=== PATIENT | male | born 1985 | race Two or more races ===

== ENCOUNTER 2023-03-06 09:46 | Emergency (ER) | payer OTHER, SELFPAY ==
[2023-03-06 09:52] VITALS: BP 154/97; PULSE 88; RESP 16; TEMP 36.4; O2SAT 99; BMI 27.8
--- NOTE | 2023-03-06 10:01 | PC.NURSE ---
pt has had dental pain for months to rt upper posterior jaw. pt had been s een here previously for same thing and had appt with dentist set up but was incarcerated and released yesterday. pt is holding rt side of face. report dental analgesia given previously worked well for him. dentition is poor t/o mouth.
--- NOTE | 2023-03-06 10:07 | ED_ITS ---
HPI - General Adult General Chief complaint: Dental/Oral Stated complaint: DENTAL PAIN Time Seen by Provider: 03/06/23 09:58 Source: patient Mode of arrival: walk-in Limitations: no limitations History of Present Illness HPI narrative: Patient is a 37-year-old male, extremely pleasant, coming into the Emergency Room today for acute on chronic dental pain. Patient has multiple areas of dental caries, patient's having pain with tooth #31 and 32. Patient has no signs temperature periapical abscess, patient has no fall taste or pus coming from the tooth. Patient did have a dental appointment this past month, but he went to [facility] care. Patient just got a generally yesterday, and patient is working with his girlfriend to reestablish another dental appointment. He states that [facility] will see him for dental care, but he has to be there the of the month To reestablish care. Patient has no fever, chills. No dull pain, nausea, vomiting, or any other acute complaints. Related Data Allergies Allergy/AdvReac Type Severity Reaction Status Date / Time Penicillins Allergy Severe Anaphylaxis Verified 03/06/23 09:52 Review of Systems ROS Narrative All systems are negative except as noted/marked. All systems reviewed and otherwise negative. PFSH PFS Social History Smoking status: Current every day smoker Exam Narrative Exam Narrative: Nurses notes reviewed and patient is noted to be non-hypoxic. General: The patient is comfortable, alert and oriented x3, well appearing, non toxic in no apparent distress. Head: Atraumatic and normocephalic. Eyes: Normal conjunctiva ENT: The oropharynx is normal. No pharyngeal erythema, uvular edema, tonsillar exudates, asymmetry or trismus. Uvula is midline. Mouth is normal to inspection With the exception of a pain on percussion of the tooth #31/32 and evidence of Multiple dental caries. There is no evidence of facial asymmetry or abscess formation. Floor of the mouth is soft. No tenderness in the submental or submandibular space. No tongue elevation or deviation. The patient has no evidence of periapical abscess, gingivitis, ANUG or other acute pathology. Airway is patent. Neck: The neck demonstrates normal range of motion. No meningeals signs are present. No stridor. No masses or lymphandenopathy noted. Respiratory: No acute distress, lungs are clear to auscultation, no wheezing, rhonchi, or rales noted. No stridor or retractions are noted. Cardiovascular: Regular rate and rhythm Skin: The skin exam shows no evidence of rashes. Patient has multiple Tattoos, no signs of secondary infection Neuro: Alert and oriented x4, normal speech Lymphatic: No cervical lymphadenopathy Constitutional Vital Signs - 24 hr 03/06/23 09:52 Temperature 97.5 F L Pulse Rate [Monitor] 88 Respiratory Rate 16 Blood Pressure [Right Arm] 154/97 H Pulse Oximetry 99 Oxygen Delivery Method Room Air Course Vital Signs Vital signs: Vital Signs Temperature 97.5 F L 03/06/23 09:52 Pulse Rate 88 03/06/23 09:52 Respiratory Rate 16 03/06/23 09:52 Blood Pressure 154/97 H 03/06/23 09:52 Pulse Oximetry 99 03/06/23 09:52 Oxygen Delivery Method Room Air 03/06/23 09:52 Temperature 97.5 F L 03/06/23 09:52 Pulse Rate 88 03/06/23 09:52 Respiratory Rate 16 03/06/23 09:52 Blood Pressure 154/97 H 03/06/23 09:52 Pulse Oximetry 99 03/06/23 09:52 Oxygen Delivery Method Room Air 03/06/23 09:52 Medical Decision Making MDM Narrative Medical decision making narrative: . Patient is given dental analgesia which she actually requested, stating that helped significantly with his pain last time. No indication for antibiotics at this time. Patient blood pressure is elevated, he is aware of this. Patient will check blood pressure at grocery stores or drug stores and if it is consistently high, he'll follow [facility] with [facility] for his blood pressure readings as well. He has no headache, chest pain, shortness of breath, no syncopal episodes. Patient is very thankful for help. Patient was given dental clinic sheet as well. Discharge Plan Discharge Chief Complaint: Dental/Oral Clinical Impression: Dental caries, Toothache Patient Disposition: Home, Self-Care Time of Disposition Decision: 10:03 Instructions: Benzocaine (By mouth) (Anbesol, Anbesol Maximum Strength,..., Toothache (ED) Additional Instructions: Use [id number] Tylenol Motrin as needed for pain. Dental clinic sheet has been provided. Stand Alone Forms: Portal Instructions Referrals: Physician,Non-Staff, [Primary Care Provider] - 1 week
[2023-03-06] MEDS: BENZOCAINE 30 ML, lidocaine HCL 15 ML MM (10:14)
== END 2023-03-06 10:18 | disposition home or self-care (01) ==
PROVIDERS: Emergency Provider Emergency Medicine
DX: K02.9 Dental caries, unspecified (principal); K08.89 Other specified disorders of teeth and supporting structures; F17.210 Nicotine dependence, cigarettes, uncomplicated
CPT/HCPCS: 99283

== ENCOUNTER 2023-03-12 12:03 | Emergency (ER) | payer OTHER, SELFPAY ==
[2023-03-12 12:07] VITALS: BP 142/93; PULSE 68; RESP 18; TEMP 36.6; O2SAT 98; BMI 27.8
--- NOTE | 2023-03-12 12:15 | PC.NURSE ---
Pt was prescribed topical dental anesthesia 4 days ago and states this helped but he is out of it now.
--- NOTE | 2023-03-12 12:20 | ED.DENTAL1 ---
HPI - Dental/Oral General Chief complaint: Dental/Oral Stated complaint: TOOTHPAIN Time Seen by Provider: 03/12/23 12:15 Source: patient Mode of arrival: walk-in Limitations: no limitations History of Present Illness HPI Narrative: 37-year-old male presents to the emergency department for toothache. He has a dentist appointment in eight days. He's complaining of pain primarily to his left lower jaw posteriorly. She is requesting the liquid that you put on a cotton ball to numb his gums. No fever or difficulty breathing or swallowing. The pain is moderate and continuous. Related Data Previous Rx's Medication Instructions Recorded clindamycin HCl 300 mg capsule 300 mg PO Q6H 7 days #28 caps 03/12/23 Allergies Allergy/AdvReac Type Severity Reaction Status Date / Time Penicillins Allergy Severe Anaphylaxis Verified 03/06/23 09:52 Review of Systems ROS Narrative A ten point review of systems is negative except as noted above. PFSH PFSH Social History Smoking status: Current every day smoker Exam Narrative Exam Narrative: Nurses note and vital signs reviewed and patient is not hypoxic. General: The patient appears well and in no apparent distress. Patient is resting comfortably on cart. Skin: Warm, dry, no pallor noted. There is no rash noted. Head: Normocephalic, atraumatic Eye: Normal conjunctiva, no drainage Ears, Nose, Mouth, and Throat: oral mucosa is moist. Nares patent. Dental caries noted in left lower jaw posteriorly. No gingival swelling or erythema. No swelling to the floor of his mouth. No facial swelling or erythema. Cardiovascular: Regular Rate and Rhythm Respiratory: Patient is in no distress, no accessory muscle use, lungs are clear to auscultation, no wheezing, rales or rhonchi Back: non-tender GI: Soft and nontender Musculoskeletal: The patient has no evidence of calf tenderness, no pitting edema, symmetrical pulses noted bilaterally Neurological: A&O, normal speech Psychiatric: Cooperative Constitutional Vital Signs - 24 hr 03/12/23 12:07 Temperature 97.8 F Pulse Rate [Monitor] 68 Respiratory Rate 18 Blood Pressure [Right Arm] 142/93 H Pulse Oximetry 98 Oxygen Delivery Method Room Air Course Vital Signs Vital signs: Vital Signs Temperature 97.8 F 03/12/23 12:07 Pulse Rate 68 03/12/23 12:07 Respiratory Rate 18 03/12/23 12:07 Blood Pressure 142/93 H 03/12/23 12:07 Pulse Oximetry 98 03/12/23 12:07 Oxygen Delivery Method Room Air 03/12/23 12:07 Temperature 97.8 F 03/12/23 12:07 Pulse Rate 68 03/12/23 12:07 Respiratory Rate 18 03/12/23 12:07 Blood Pressure 142/93 H 03/12/23 12:07 Pulse Oximetry 98 03/12/23 12:07 Oxygen Delivery Method Room Air 03/12/23 12:07 MDM - Dental/Oral MDM Narrative Medical decision making narrative: . dental anesthesia and clindamycin prescription. He'll see his dentist in eight days. Treatment diagnosis and follow-up were discussed with the patient Differential Diagnosis Differential diagnosis: Likely dental caries, toothache and dental abscess Discharge Plan Discharge Chief Complaint: Dental/Oral Clinical Impression: Dental caries Patient Disposition: Home, Self-Care Time of Disposition Decision: 12:18 Mode of Transportation: Private Vehicle Prescriptions / Home Meds: New clindamycin HCl 300 mg capsule 300 mg PO Q6H 7 Days Qty: 28 0RF Instructions: Toothache (ED) Stand Alone Forms: Portal Instructions Referrals: Physician,Non-Staff, MD [Primary Care Provider] - 1 week
[2023-03-12] MEDS: BENZOCAINE 30 ML, lidocaine HCL 15 ML MM (12:34)
== END 2023-03-12 12:40 | disposition home or self-care (01) ==
LOC: ER 12:50
PROVIDERS: Emergency Provider Emergency Medicine
DX: K02.9 Dental caries, unspecified (principal); F17.210 Nicotine dependence, cigarettes, uncomplicated
CPT/HCPCS: 99283

== ENCOUNTER 2023-04-16 15:13 | Emergency (ER) | payer OTHER, SELFPAY ==
[2023-04-16 15:22] VITALS: BP 114/74; PULSE 65; RESP 18; TEMP 36.5; O2SAT 100
--- NOTE | 2023-04-16 15:48 | ED.DENTAL1 ---
HPI - Dental/Oral General Chief complaint: Dental/Oral Stated complaint: toothache Time Seen by Provider: 04/16/23 15:35 Source: patient Mode of arrival: walk-in Limitations: no limitations History of Present Illness HPI Narrative: patient is a 37-year-old male presents to the emergency department for acute on chronic toothache to the right mandible and right maxilla. He has been seen in this emergency department twice previously in the last six weeks for the same symptoms. He completed a course of clindamycin three weeks ago. He does not have an appointment with the dentist for another month, although documentation from his visit one month ago shows that he was supposed to have a visit with a dentist within the week from his last visit. He is regular smoker. He has had no fevers, swelling of the mouth or drainage from the teeth. Related Data Previous Rx's Medication Instructions Recorded ketorolac 10 mg tablet 10 mg PO TID PRN pain #10 tabs 04/16/23 Allergies Allergy/AdvReac Type Severity Reaction Status Date / Time Penicillins Allergy Severe Anaphylaxis Verified 03/06/23 09:52 Review of Systems ROS Constitutional Denies: fever or chills Ears, nose, mouth, and throat Denies: throat pain Cardiovascular Denies: chest pain Respiratory Denies: shortness of breath or cough Gastrointestinal Denies: nausea or vomiting Musculoskeletal Denies: back pain Integumentary/Breast Denies: rash Neurological Denies: headache Hematologic/Lymphatic Denies: easy bruising Allergic/Immunologic Denies: hives PFSH PFS Social History Smoking status: Current every day smoker Exam Narrative Exam Narrative: Gen.: Awake, alert, in no distress Head: Normocephalic, atraumatic ENT: Moist mucous membranes, diffuse dental caries noted with no drainage or visible abscess. No redness or swelling under the tongue. No mandibular or maxillary swelling. Respiratory: No respiratory distress Extremities: Moves extremities equally Psych: Normal mood and affect Neuro: No focal neuro deficit Skin: Warm, dry, intact Constitutional Vital Signs, click to edit/add: Last Vital Signs Temp 97.7 F 04/16/23 15:22 Pulse 65 04/16/23 15:22 Resp 18 04/16/23 15:22 BP 114/74 07/27/23 15:22 Pulse Ox 100 04/16/23 15:22 O2 Del Method Room Air 04/16/23 15:22 Course Vital Signs Vital signs: Vital Signs Temperature 97.7 F 04/16/23 15:22 Pulse Rate 65 04/16/23 15:22 Respiratory Rate 18 04/16/23 15:22 Blood Pressure 114/74 04/16/23 15:22 Pulse Oximetry 100 04/16/23 15:22 Oxygen Delivery Method Room Air 04/16/23 15:22 Temperature 97.7 F 04/16/23 15:22 Pulse Rate 65 04/16/23 15:22 Respiratory Rate 18 04/16/23 15:22 Blood Pressure 114/74 04/16/23 15:22 Pulse Oximetry 100 04/16/23 15:22 Oxygen Delivery Method Room Air 04/16/23 15:22 MDM - Dental/Oral MDM Narrative Medical decision making narrative: exam is consistent with chronic dental caries, patient treated with topical analgesia, NSAIDs. He recently completed a course of antibiotics and does not have any evidence of dental abscess at this time so we will defer additional antibiotic course. Return to the Emergency Room if symptoms change or worsen. Attending physician attestation I have reviewed the mid-level documentation, agree with the documentation, medical decision making and treatment plan as outlined by the mid-level provider. Medical Records Attestation: I reviewed the patient's medical records. Discharge Plan Discharge Chief Complaint: Dental/Oral Clinical Impression: Toothache Patient Disposition: Home, Self-Care Time of Disposition Decision: 15:47 Condition: Good Prescriptions / Home Meds: New ketorolac 10 mg tablet 10 mg PO TID PRN (Reason: pain) Qty: 10 0RF Instructions: Toothache (ED) Stand Alone Forms: Portal Instructions Referrals: Physician,Non-Staff, MD [Primary Care Provider] - 1 week Discharge Date/Time: 04/16/23 16:07
[2023-04-16] MEDS: BENZOCAINE 20% 30 ML SOLUTION MM (16:05)
[2023-04-16] MEDS: LIDOCAINE 2% JELLY 10 ML UR (16:05)
== END 2023-04-16 16:07 | disposition home or self-care (01) ==
PROVIDERS: Emergency Provider Emergency Medicine
DX: K08.89 Other specified disorders of teeth and supporting structures (principal); F17.210 Nicotine dependence, cigarettes, uncomplicated
CPT/HCPCS: 99284

== ENCOUNTER 2023-05-18 12:52 | Emergency (ER) | payer OTHER, SELFPAY ==
[2023-05-18 12:58] VITALS: BP 132/92; PULSE 72; RESP 16; TEMP 36.7; O2SAT 98; BMI 27.8
--- NOTE | 2023-05-18 12:58 | ED.GENADUL1 ---
Documented by User: Halie Green MD 05/18/23 17:00 HPI - General Adult General Chief complaint: Dental/Oral Stated complaint: DENTAL PAIN Time Seen by Provider: 05/18/23 12:58 Related Data Previous Rx's Medication Instructions Recorded ketorolac 10 mg tablet 10 mg PO TID PRN pain #10 tabs 04/16/23 ketorolac 10 mg tablet 10 mg PO Q8H PRN pain 3 days #9 05/18/23 tabs Allergies Allergy/AdvReac Type Severity Reaction Status Date / Time Penicillins Allergy Severe Anaphylaxis Verified 05/18/23 12:58 PFSH PFS Social History Smoking status: Current every day smoker Exam Constitutional Vital Signs, click to edit/add: Last Vital Signs Temp 98.1 F 05/18/23 12:58 Pulse 72 05/18/23 12:58 Resp 16 05/18/23 12:58 BP 132/92 H 05/18/23 12:58 Pulse Ox 98 05/18/23 12:58 O2 Del Method Room Air 05/18/23 12:58 Course Vital Signs Vital signs: Vital Signs Temperature 98.1 F 05/18/23 12:58 Pulse Rate 72 05/18/23 12:58 Respiratory Rate 16 05/18/23 12:58 Blood Pressure 132/92 H 05/18/23 12:58 Pulse Oximetry 98 05/18/23 12:58 Oxygen Delivery Method Room Air 05/18/23 12:58 Temperature 98.1 F 05/18/23 12:58 Pulse Rate 72 05/18/23 12:58 Respiratory Rate 16 05/18/23 12:58 Blood Pressure 132/92 H 05/18/23 12:58 Pulse Oximetry 98 05/18/23 12:58 Oxygen Delivery Method Room Air 05/18/23 12:58 Medical Decision Making MDM Narrative Medical decision making narrative: He was medicated for his discomfort here. A prescription was provided for Toradol. Follow up with the dentist this week as scheduled. Return precautions were discussed. Attending physician attestation . I have reviewed the mid-level documentation, agree with the documentation, medical decision making and treatment plan as outlined by the mid-level provider. Discharge Plan Discharge Chief Complaint: Dental/Oral Clinical Impression: Toothache, Dental caries Patient Disposition: Home, Self-Care Time of Disposition Decision: 13:13 Condition: Good Mode of Transportation: Private Vehicle Prescriptions / Home Meds: New ketorolac 10 mg tablet 10 mg PO Q8H PRN (Reason: pain) 3 Days Qty: 9 0RF No Action ketorolac 10 mg tablet 10 mg PO TID PRN (Reason: pain) Qty: 10 0RF Instructions: Toothache (ED) Additional Instructions: Follow up with your dentist this week as scheduled. Stand Alone Forms: Portal Instructions Referrals: Physician,Non-Staff, MD [Primary Care Provider] - 1 week Discharge Date/Time: 05/18/23 13:26 Documented by User: Neelima Marks 05/18/23 13:34 HPI - General Adult General Chief complaint: Dental/Oral Stated complaint: DENTAL PAIN Time Seen by Provider: 05/18/23 12:58 History of Present Illness HPI narrative: 37 year old male presents to the ED for right upper and lower dental pain. It has been an ongoing issue for months, worse the past few days. States he has a dental appointment 05/21/23. Denies fever, chills, SOB, difficulty swallowing. Rates his pain 7/10 at this time. He is requesting the medication he received at his previous ED visit. Related Data Previous Rx's Medication Instructions Recorded ketorolac 10 mg tablet 10 mg PO TID PRN pain #10 tabs 04/16/23 ketorolac 10 mg tablet 10 mg PO Q8H PRN pain 3 days #9 05/18/23 tabs Allergies Allergy/AdvReac Type Severity Reaction Status Date / Time Penicillins Allergy Severe Anaphylaxis Verified 05/18/23 12:58 Review of Systems ROS Constitutional Denies: fever, chills or fatigue Eyes Denies: change in vision Ears, nose, mouth, and throat Reports: other (Dental pain); Denies: throat pain, neck pain, throat swelling or nasal discharge Cardiovascular Denies: chest pain Respiratory Denies: shortness of breath Integumentary/Breast Denies: rash PFSH PFS Social History Smoking status: Current every day smoker Exam Constitutional Vital Signs, click to edit/add: Last Vital Signs Temp 98.1 F 05/18/23 12:58 Pulse 72 05/18/23 12:58 Resp 16 05/18/23 12:58 BP 132/92 H 05/18/23 12:58 Pulse Ox 98 05/18/23 12:58 O2 Del Method Room Air 05/18/23 12:58 Common normals: no apparent distress and oriented x3 Exam limitations: no altered mental status General appearance: cooperative; not in distress and not ill appearing Orientation/consciousness: Yes awake HENMT Common normals: normocephalic and head/scalp atraumatic Face and sinus: face symmetric Nose: external nose normal External ear: external ears normal Mouth: lip normal Teeth and gingiva: caries (Various areas. Pt handling secretions well, speaking in full sentences.) and other (No facial swelling. No swelling to floor of mouth. ) Eye Common normals: conjunctivae normal and no scleral icterus Neck & C-Spine Common normals: supple Chest Chest: symmetrical chest wall rise Respiratory Common normals: normal respiratory effort Cardio Common normals: regular rate Neuro Common normals: oriented x3 Sensorium/orientation: awake and alert Speech: speech normal Gait (neuro): normal gait Course Vital Signs Vital signs: Vital Signs Temperature 98.1 F 05/18/23 12:58 Pulse Rate 72 05/18/23 12:58 Respiratory Rate 16 05/18/23 12:58 Blood Pressure 132/92 H 05/18/23 12:58 Pulse Oximetry 98 05/18/23 12:58 Oxygen Delivery Method Room Air 05/18/23 12:58 Temperature 98.1 F 05/18/23 12:58 Pulse Rate 72 05/18/23 12:58 Respiratory Rate 16 05/18/23 12:58 Blood Pressure 132/92 H 05/18/23 12:58 Pulse Oximetry 98 05/18/23 12:58 Oxygen Delivery Method Room Air 05/18/23 12:58 Medical Decision Making MDM Narrative Medical decision making narrative: He was medicated for his discomfort here. A prescription was provided for Toradol. Follow up with the dentist this week as scheduled. Return precautions were discussed. Medical Records Medical records reviewed: Yes I reviewed the patient's medical records Discharge Plan Discharge Chief Complaint: Dental/Oral Clinical Impression: Toothache, Dental caries Patient Disposition: Home, Self-Care Time of Disposition Decision: 13:13 Condition: Good Mode of Transportation: Private Vehicle Prescriptions / Home Meds: New ketorolac 10 mg tablet 10 mg PO Q8H PRN (Reason: pain) 3 Days Qty: 9 0RF No Action ketorolac 10 mg tablet 10 mg PO TID PRN (Reason: pain) Qty: 10 0RF Instructions: Toothache (ED) Additional Instructions: Follow up with your dentist this week as scheduled. Stand Alone Forms: Portal Instructions Referrals: Physician,Non-Staff, MD [Primary Care Provider] - 1 week Discharge Date/Time: 05/18/23 13:26
[2023-05-18] MEDS: BENZOCAINE 20% 30 ML SOLUTION MM (13:22)
== END 2023-05-18 13:26 | disposition home or self-care (01) ==
PROVIDERS: Emergency Provider Emergency Medicine
DX: K02.9 Dental caries, unspecified (principal); K08.89 Other specified disorders of teeth and supporting structures; F17.210 Nicotine dependence, cigarettes, uncomplicated
CPT/HCPCS: 99283

== ENCOUNTER 2023-05-20 20:03 | Emergency (ER) | payer OTHER, SELFPAY ==
[2023-05-20 20:19] VITALS: BP 157/100; PULSE 83; RESP 16; TEMP 36.6; O2SAT 100
== END 2023-05-20 20:29 | disposition left against medical advice (07) ==
PROVIDERS: Emergency Provider Emergency Medicine
DX: Z53.21 Procedure and treatment not carried out due to patient leaving prior to being seen by health care provider (principal)

== ENCOUNTER 2023-05-22 09:06 | Emergency (ER) | payer OTHER, SELFPAY ==
[2023-05-22 09:10] VITALS: BP 132/84; PULSE 83; O2SAT 100; BMI 28.6
--- NOTE | 2023-05-22 09:44 | ED_ITS ---
HPI - Dental/Oral General Chief complaint: Dental/Oral Stated complaint: DENTAL PAIN Time Seen by Provider: 05/22/23 09:38 Source: patient Mode of arrival: walk-in History of Present Illness HPI Narrative: this patient's here for continued dental pain. It's primarily on the lower right side here. He has not seen a dentist recently and is on a waiting list to be seen. He's noticed a purulent drainage in his mouth. He was seen at this [facility] recently and was given analgesics but no particular antibiotic. He has severe reaction when taking penicillin. He has no other complaints today. Related Data Previous Rx's Medication Instructions Recorded ketorolac 10 mg tablet 10 mg PO TID PRN pain #10 tabs 04/16/23 ketorolac 10 mg tablet 10 mg PO Q8H PRN pain 3 days #9 05/18/23 tabs Allergies Allergy/AdvReac Type Severity Reaction Status Date / Time Penicillins Allergy Severe Anaphylaxis Verified 05/22/23 09:14 PFSH PFS Social History Smoking status: Current every day smoker Exam Narrative Exam Narrative: awake alert in mild discomfort. Good historian he is afebrile there is no obvious facial swelling. Oral cavity shows poor dental repair in general. He's got overall extensive. Vishal gingival disease. On the right lower side near the premolar he has a small area of gingival inflammation that was draining purulent material. The floor the mouth is not swollen. Tongue rises in midline. Uvula is not deviated. His teeth are tender on the lower right with tooth #29 and thirty being most tender. Constitutional Vital Signs, click to edit/add: Last Vital Signs Pulse 83 05/22/23 09:10 BP 132/84 05/22/23 09:10 Pulse Ox 100 05/22/23 09:10 O2 Del Method Room Air 05/22/23 09:10 Respiratory Common normals: normal respiratory effort Course Vital Signs Vital signs: Vital Signs Pulse Rate 83 05/22/23 09:10 Blood Pressure 132/84 05/22/23 09:10 Pulse Oximetry 100 05/22/23 09:10 Oxygen Delivery Method Room Air 05/22/23 09:10 Pulse Rate 83 05/22/23 09:10 Blood Pressure 132/84 05/22/23 09:10 Pulse Oximetry 100 05/22/23 09:10 Oxygen Delivery Method Room Air 05/22/23 09:10 Discharge Plan Discharge Chief Complaint: Dental/Oral Clinical Impression: Dental caries, Toothache Patient Disposition: Home, Self-Care Time of Disposition Decision: 09:46 Prescriptions / Home Meds: No Action ketorolac 10 mg tablet 10 mg PO TID PRN (Reason: pain) Qty: 10 0RF ketorolac 10 mg tablet 10 mg PO Q8H PRN (Reason: pain) 3 Days Qty: 9 0RF Additional Instructions: clindamycin/warm saline gargles/Toradol Stand Alone Forms: Portal Instructions Referrals: Physician,Non-Staff, MD [Primary Care Provider] - 1 week
== END 2023-05-22 09:57 | disposition home or self-care (01) ==
PROVIDERS: Emergency Provider Emergency Medicine Emergency Medical Services
DX: K02.9 Dental caries, unspecified (principal); K08.89 Other specified disorders of teeth and supporting structures; F17.210 Nicotine dependence, cigarettes, uncomplicated
CPT/HCPCS: 99283

== ENCOUNTER 2023-07-17 12:47 | Emergency (ER) | payer OTHER, SELFPAY ==
[2023-07-17 12:56] VITALS: BP 135/96; PULSE 78; RESP 16; TEMP 36.6; O2SAT 100; BMI 27.1
--- NOTE | 2023-07-17 13:23 | ED.DENTAL1 ---
HPI - Dental/Oral General Chief complaint: Dental/Oral Stated complaint: TOOTHACHE Time Seen by Provider: 07/17/23 13:06 Source: patient Mode of arrival: walk-in Limitations: no limitations History of Present Illness HPI Narrative: patient is a 38-year-old male who presents the emergency department for two day history of increasing pain to the right side of the jaw. He is chronic ongoing issues with tooth #1 and tooth #32. He has not been able to see a dentist. He denies any fevers or drainage from the tooth. No injury or trauma. No difficulty swallowing. He has been using Tylenol and ibuprofen without improvement. Related Data Previous Rx's Medication Instructions Recorded ketorolac 10 mg tablet 10 mg PO TID PRN pain #10 tabs 04/16/23 ketorolac 10 mg tablet 10 mg PO Q8H PRN pain 3 days #9 05/18/23 tabs clindamycin HCl 150 mg capsule 300 mg PO Q6H 7 days #56 caps 07/17/23 ketorolac 10 mg tablet 10 mg PO TID PRN pain #10 tabs 07/17/23 Allergies Allergy/AdvReac Type Severity Reaction Status Date / Time Penicillins Allergy Severe Anaphylaxis Verified 07/17/23 12:59 Review of Systems ROS Constitutional Denies: fever or chills Ears, nose, mouth, and throat Denies: throat pain or nasal congestion Respiratory Denies: shortness of breath or cough Gastrointestinal Denies: nausea or vomiting Musculoskeletal Denies: back pain Integumentary/Breast Denies: rash Neurological Reports: headache PFSH PFSH Social History Smoking status: Current every day smoker Exam Narrative Exam Narrative: Gen.: Awake, alert, in no distress Head: Normocephalic, atraumatic ENT: Moist mucous membranes; tooth #1 with erosion to the gumline, root exposure, no visible abscess or drainage. Tooth #32 with partial dental miguel, no abscess or drooling noted. no mandibular or maxillary swelling. No redness or swelling under the tongue. No trismus or drooling. Airway widely open and patent. Uvula midline. Respiratory: No respiratory distress Extremities: Moves extremities equally Psych: Normal mood and affect Neuro: No focal neuro deficit Skin: Warm, dry, intact Constitutional Vital Signs, click to edit/add: Last Vital Signs Temp 97.9 F 07/17/23 12:56 Pulse 78 07/17/23 12:56 Resp 16 07/17/23 12:56 BP 135/96 H 07/17/23 12:56 Pulse Ox 100 07/17/23 12:56 O2 Del Method Room Air 07/17/23 12:56 Course Vital Signs Vital signs: Vital Signs Temperature 97.9 F 07/17/23 12:56 Pulse Rate 78 07/17/23 12:56 Respiratory Rate 16 07/17/23 12:56 Blood Pressure 135/96 H 07/17/23 12:56 Pulse Oximetry 100 07/17/23 12:56 Oxygen Delivery Method Room Air 07/17/23 12:56 Temperature 97.9 F 07/17/23 12:56 Pulse Rate 78 07/17/23 12:56 Respiratory Rate 16 07/17/23 12:56 Blood Pressure 135/96 H 07/17/23 12:56 Pulse Oximetry 100 07/17/23 12:56 Oxygen Delivery Method Room Air 07/17/23 12:56 MDM - Dental/Oral MDM Narrative Medical decision making narrative: patient treated for dental pain, dental caries with clindamycin, topical analgesia and NSAIDs. Follow-up with dental and return to the Emergency Room if symptoms change or worsen patient was provided with additional phone numbers for tertiary care facilities if he is having difficulty getting in with local dentistry. I, Dr Stafford, have reviewed the above progress note and course of action in the ER; agree with the above. I gone over history and physical, and discussed disposition and treatment plan with the patient. Medical Records Attestation: I reviewed the patient's medical records. Discharge Plan Discharge Chief Complaint: Dental/Oral Clinical Impression: Dental caries, Toothache Patient Disposition: Home, Self-Care Time of Disposition Decision: 13:19 Condition: Good Prescriptions / Home Meds: New clindamycin HCl 150 mg capsule 300 mg PO Q6H 7 Days Qty: 56 0RF ketorolac 10 mg tablet 10 mg PO TID PRN (Reason: pain) Qty: 10 0RF No Action ketorolac 10 mg tablet 10 mg PO TID PRN (Reason: pain) Qty: 10 0RF ketorolac 10 mg tablet 10 mg PO Q8H PRN (Reason: pain) 3 Days Qty: 9 0RF Instructions: Toothache (ED) Additional Instructions: [facility]: [phone] [facility] Dental: [phone] [facility] Dental: [phone] Stand Alone Forms: Portal Instructions Referrals: Physician,Non-Staff, MD [Primary Care Provider] - 1 week Discharge Date/Time: 07/17/23 13:51
[2023-07-17] MEDS: BENZOCAINE 30 ML, lidocaine HCL 15 ML MM (13:43)
== END 2023-07-17 13:51 | disposition home or self-care (01) ==
PROVIDERS: Emergency Provider Emergency Medicine
DX: K02.9 Dental caries, unspecified (principal); K08.89 Other specified disorders of teeth and supporting structures; F17.210 Nicotine dependence, cigarettes, uncomplicated
CPT/HCPCS: 99283

== ENCOUNTER 2023-08-22 13:15 | Emergency (ER) | payer OTHER, SELFPAY ==
[2023-08-22 13:23] VITALS: BP 124/78; PULSE 77; RESP 14; TEMP 37.2; O2SAT 99; BMI 26.9
--- NOTE | 2023-08-22 13:56 | PC.NURSE ---
this has been an ongoing problem for pt for months and states he is just unable to see his dentist. pt reports using OTC meds at home and is concerned he may have cracked a tooth on the bottom right side. no swelling to bilat lower mouth observed.
--- NOTE | 2023-08-22 14:45 | ED.DENTAL1 ---
HPI - Dental/Oral General Chief complaint: Dental/Oral Stated complaint: TOOTHACHE Time Seen by Provider: 08/22/23 13:31 Source: patient Mode of arrival: walk-in History of Present Illness HPI Narrative: The patient complains of a cracked right lower rear molar - said it broke today. He has numerous visits in the last 6 months for dental caries, gingivitis and dental pain. He has been placed on clindamycin several times, topical dental paste and NSAIDs. He said he has not followed up with a dentist because getting there is an issue . He is a daily smoker. No fever or chills. No vomiting. Related Data Previous Rx's Medication Instructions Recorded clindamycin HCl 150 mg capsule 450 mg PO TID 7 days #63 caps 08/22/23 nabumetone 750 mg tablet 750 mg PO BID PRN pain #20 tabs 08/22/23 Allergies Allergy/AdvReac Type Severity Reaction Status Date / Time Penicillins Allergy Severe Anaphylaxis Verified 07/17/23 12:59 PFSH PFS Social History Smoking status: Current every day smoker Exam Narrative Exam Narrative: afebrile General: The patient is comfortable, alert and oriented x3, well appearing, non toxic in no apparent distress. Head: Atraumatic and normocephalic. Eyes: Normal conjunctiva ENT: The oropharynx is normal. No pharyngeal erythema, uvular edema, tonsillar exudates, asymmetry or trismus. Uvula is midline. Mouth with widespread periodontal disease, gingival changes, numerous fractured and carious teeth. He localizes his complaint to tooth #32, which is cracked and has missing enamel. He also has a periapical abscess at that area. There is no evidence of facial asymmetry or facial abscess formation. Floor of the mouth is soft. No tenderness in the submental or submandibular space. No tongue elevation or deviation. Airway is patent. Neck: The neck demonstrates normal range of motion. No meningeals signs are present. No stridor. No masses or lymphandenopathy noted. Respiratory: No acute distress, no stridor or retractions are noted. Cardiovascular: normal peripheral perfusion Skin: The skin exam shows no evidence of rashes Neuro: Alert and oriented x4, normal speech Lymphatic: No cervical lymphadenopathy Constitutional Vital Signs, click to edit/add: Last Vital Signs Temp 99.0 F 08/22/23 13:23 Pulse 77 08/22/23 13:23 Resp 14 08/22/23 13:23 BP 124/78 08/22/23 13:23 Pulse Ox 99 08/22/23 13:23 O2 Del Method Room Air 08/22/23 13:58 Course Vital Signs Vital signs: Vital Signs Temperature 99.0 F 08/22/23 13:23 Pulse Rate 77 08/22/23 13:23 Respiratory Rate 14 08/22/23 13:23 Blood Pressure 124/78 08/22/23 13:23 Pulse Oximetry 99 08/22/23 13:23 Oxygen Delivery Method Room Air 08/22/23 13:23 Temperature 99.0 F 08/22/23 13:23 Pulse Rate 77 08/22/23 13:23 Respiratory Rate 14 08/22/23 13:23 Blood Pressure 124/78 08/22/23 13:23 Pulse Oximetry 99 08/22/23 13:23 Oxygen Delivery Method Room Air 08/22/23 13:58 MDM - Dental/Oral MDM Narrative Medical decision making narrative: Long talk with the patient and his significant other. Discussed concerns with continued clindamycin use - he is allergic to penicillin - along with lack of oral hygiene - he does not brush his teeth - and lack of dentist follow up. Patient prescribed clindamycin and relafen and given dentist referral list. His significant other says she will ensure that he gets dentist follow up. Discharge Plan Discharge Chief Complaint: Dental/Oral Clinical Impression: Fracture of tooth, Dental caries, Gingival abscess, Periodontal disease Patient Disposition: Home, Self-Care Time of Disposition Decision: 14:02 Prescriptions / Home Meds: New clindamycin HCl 150 mg capsule 450 mg PO TID 7 Days Qty: 63 0RF nabumetone 750 mg tablet 750 mg PO BID PRN (Reason: pain) Qty: 20 0RF Instructions: Gingivitis (ED), Toothache (ED), Periodontal Disease (DC) Stand Alone Forms: Portal Instructions Referrals: Physician,Non-Staff, MD [Primary Care Provider] - 1 week
[2023-08-22 14:50] VITALS: BP 133/87; PULSE 88; RESP 18; O2SAT 98
== END 2023-08-22 15:01 | disposition home or self-care (01) ==
PROVIDERS: Emergency Provider Emergency Medicine
DX: K05.20 Aggressive periodontitis, unspecified (principal); K02.9 Dental caries, unspecified; S02.5XXA Fracture of tooth (traumatic), initial encounter for closed fracture; X58.XXXA Exposure to other specified factors, initial encounter; F17.210 Nicotine dependence, cigarettes, uncomplicated
CPT/HCPCS: 99283

== ENCOUNTER 2025-02-04 14:34 | Emergency (ER) | payer OTHER, SELFPAY ==
[2025-02-04 14:41] VITALS: BP 145/88; PULSE 75; TEMP 36.8; O2SAT 100; BMI 27.1
--- OUTSIDE RECORDS SUMMARY | 2025-02-04 14:42 | XMS_ITS | CCD ---
Author Organization [facility] Care Team Providers Care Segmental Paving Supervisor Name Role Phone Cristina Martin Attending Unavailable REQUEST, NONE LISTED Primary Care Unavaila calvin PRESTON ., DR ESPITIA Consulting Unavailable KARY ., DR ESPITIA Admitting Unavailable KARY ., DR ESPITIA Attending Unavailable Xiomara Patel Consulting Unavailable REQUEST, NONE LISTED Primary Care Unavaila ble JUANITA ., SUSHIL Admitting Unavailable JUANITA ., SUSHIL Attending Unavailable KESHAV, DR JANA Dennis Consulting Unavailable JUANITA ., SUSHIL Consulting Unavailable REQUEST, NONE LISTED Primary Care Unavaila ble SUMAN CAMPBELL Consulting Unavailable SUMAN CAMPBELL Admitting Unavailable SUMAN CAMPBELL Attending Unavailable REQUEST, NONE LISTED Primary Care Unavaila ble SUMAN CAMPBELL Admitting Unavailable SUMAN CAMPBELL Attending Unavailable SUMAN CAMPBELL Consulting Unavailable Allergies Allergy Classification Reported Allergen(s) Allergy Type Date of Onset Reaction(s) Facility (1 source) Penicillins; Translations: [penicillins] Propensity to adverse reactions (disorder) [facility] Repository (2 sources) Alcohol; Translations: [Alcohol] Propensity to adverse reactions (disorder) 5 [facility] (1 source) Penicillin Drug Allergy 4 [facility] Problems Problem Classification Problem Date Documented Da te Episodic/Chronic Disorders of teeth and jaw (8 sources) Dental caries, unspecified; Translations: [Other specified disorders of teeth and supporting structures] Onset: 12-23-2022 Episodic Inflammatory conditions of male genital organs (1 source) Epididymo-orchitis ; Translations: [EPIDIDYMO-ORCHITI S] Onset: 11-10-2022 Episodic Other male genital disorders (3 sources) Testicular pain, unspecified; Translations: [TESTICULAR PAIN UNSPECIFIED] Onset: 11-06-2022 Episodic Other male genital disorders (3 sources) Right testicular pain; Translations: [RIGHT TESTICULAR PAIN] Onset: 11-03-2022 Episodic Other male genital disorders (1 source) Hydrocele, unspecified; Translations: [HYDROCELE UNSPECIFIED] Onset: 11-05-2022 Episodic Substance-related disorders (1 source) Nicotine dependence, cigarettes, uncomplicated; Translations: [NICOTINE DEPEND CIGARETTES UNCOMP] Onset: 12-24-2022 Chronic Results Test Name Value Interpretation Reference Range Facil ity CHLAMYDIA/GONOCOCCUS TINO (SW AB/URINE/PAPon 11-07-2022 Chlamydia trachomatis, TINO Negative Normal Negative [facility] Comment on above: Performed By: #### C T/NGNA #### [facility] [address] [place] [address] Dr. Adria Campbell Neisseria gonorrhoeae, TINO Negative Normal Negative [facility] Comment on above: Performed By: #### C T/NGNA #### [facility] [address] [place] [address] Dr. Adria Campbell CBC AUTO DIFFon 11-06-2022 BASO # 0.1 103/ul Normal 0.0-0.1 [facility] Comment on above: Performed By: #### C BC #### [facility] [address] [place] [address] Dr. Adria Campbell Basophils/100 WBC (Bld) 0.5 % Normal 0.2-2.0 [facility] Comment on above: Performed By: #### C BC #### [facility] [address] [place] [address] Dr. Adria Campbell EO # 0.2 103/ul Normal 0.0-0.7 [facility] Comment on above: Performed By: #### C BC #### [facility] [address] [place] [address] Dr. Adria Campbell Eosinophils/100 WBC (Bld) 1.7 % Normal 0.9-7.0 [facility] Comment on above: Performed By: #### C BC #### [facility] [address] [place] [address] Dr. Adria Campbell Erythrocyte distribution width (RBC) [Ratio] 12.0 % Normal 11.0-15.0 [facility] Comment on above: Performed By: #### C BC #### [facility] [address] [place] [address] Dr. Adria Campbell Hematocrit (Bld) [Volume fraction] 40.8 % Critically low 42.0-54.0 [facility] Comment on above: Performed By: #### C BC #### [facility] [address] [place] [address] Dr. Adria Campbell Hemoglobin (Bld) [Mass/Vol] 14.0 g/dL Normal 14.0-18.0 [facility] Comment on above: Performed By: #### C BC #### [facility] [address] [place] [address] Dr. Adria Campbell IG # 0.05 10e3/ul Critically high 0.00-0.03 [facility] Comment on above: Performed By: #### C BC #### [facility] [address] [place] [address] Dr. Adria Campbell IG % 0.5 % Normal 0.0-0.5 [facility] Comment on above: Performed By: #### C BC #### [facility] [address] [place] [address] Dr. Adria Campbell LYMPH # 2.7 103/ul Normal 1.2-3.8 [facility] Comment on above: Performed By: #### C BC #### [facility] [address] [place] [address] Dr. Adria Campbell Lymphocytes/100 WBC (Bld) 24.8 % Normal 20.5-60.0 [facility] Comment on above: Performed By: #### C BC #### [facility] [address] [place] [address] Dr. Adria Campbell MANUAL DIFF REQ NO Normal [facility] Comment on above: Performed By: #### C BC #### [facility] [address] [place] [address] Dr. Adria Campbell MCH (RBC) [Entitic mass] 32.8 pg Normal 25.9-34.0 [facility] Comment on above: Performed By: #### C BC #### [facility] [address] [address] [address] Adria Campbell MCHC (RBC) [Mass/Vol] 34.3 g/dL Normal 29.9-35.2 [facility] Comment on above: Performed By: #### C BC #### [facility] [address] [place] [address] Dr. Adria Campbell MCV (RBC) [Entitic vol] 95.6 fL Critically high 80.0-94.0 [facility] Comment on above: Performed By: #### C BC #### [facility] [address] [place] [address] Dr. Adria Campbell MONO # 0.5 103/ul Normal 0.3-0.8 [facility] Comment on above: Performed By: #### C BC #### [facility] [address] [place] [address] Dr. Adria Campbell Monocytes/100 WBC (Bld) 4.2 % Normal 1.7-12.0 [facility] Comment on above: Performed By: #### C BC #### [facility] [address] [place] [address] Dr. Adria Campbell NEUT # 7.5 103/ul Critically high 1.4-6.5 [facility] Comment on above: Performed By: #### C BC #### [facility] [address] [place] [address] Dr. Adria Campbell Neutrophils/100 WBC (Bld) 68.3 % Normal 43.0-75.0 [facility] Comment on above: Performed By: #### C BC #### [facility] [address] [place] [address] Dr. Adria Campbell Platelet mean volume (Bld) [Entitic vol] 10.2 fL Normal 9.5-13.5 [facility] Comment on above: Performed By: #### C BC #### [facility] [address] [place] [address] Dr. Adria Campbell PLT 307 103/ul Normal 150-450 [facility] Comment on above: Performed By: #### C BC #### [facility] [address] [address] [address] Adria Campbell RBC 4.27 106/ul Critically low 4.70-6.10 [facility] Comment on above: Performed By: #### C BC #### [facility] [address] [address] [address] Adria Campbell WBC 10.9 103/ul Normal 4.0-11.0 [facility] Comment on above: Performed By: #### C BC #### [facility] [address] [address] [address] Adria Campbell CULTURE URINEon 11-06-2022 CULTURE URINE Culture Observations: NO GROWTH. Normal [facility] Comment on above: Performed By: #### U RCX #### [facility] [address] [place] [address] Dr. Adria Campbell ER URINE PROFILEon 3 Bilirubin Ql (U) SMALL Abnormal NEGATIVE [facility] Comment on above: Performed By: #### U MICRO, ERUR #### [facility] [address] [place] [address] Dr. Adria Campbell Clarity (U) CLEAR Normal CLEAR [facility] Comment on above: Performed By: #### U MICRO, ERUR #### [facility] [address] [place] [address] Dr. Adria Campbell Color (U) LT. YELLOW Normal YELLOW [facility] Comment on above: Performed By: #### U MICRO, ERUR #### [facility] [address] [place] [address] Dr. Adria Campbell ERUAHD A micrscopic examination will be performed if indicated. Normal [facility] Comment on above: Performed By: #### U MICRO, ERUR #### [facility] [address] [place] [address] Dr. Adria Campbell Glucose Ql (U) Negative Normal NEGATIVE [facility] Comment on above: Performed By: #### U MICRO, ERUR #### [facility] [address] [address] [address] Adria Campbell Hemoglobin Ql (U) MODERATE Abnormal NEGATIVE [facility] Comment on above: Performed By: #### U MICRO, ERUR #### [facility] [address] [address] [address] Adria Campbell Ketones Ql (U) TRACE Abnormal NEGATIVE [facility] Comment on above: Performed By: #### U MICRO, ERUR #### [facility] [address] [address] [address] Adria Campbell LEUKOCYTES MODERATE Abnormal NEGATIVE [facility] Comment on above: Performed By: #### U MICRO, ERUR #### [facility] [address] [address] [address] Adria Campbell Nitrite Ql (U) Negative Normal NEGATIVE [facility] Comment on above: Performed By: #### U MICRO, ERUR #### [facility] [address] [place] [address] Dr. Adria Campbell pH (U) 6.0 [pH] Normal 5-9 [facility] Comment on above: Performed By: #### U MICRO, ERUR #### [facility] [address] [address] [address] Adria Campbell Protein (U) [Mass/Vol] 100 mg/dL Abnormal NEGATIVE/ TRACE [facility] Comment on above: Performed By: #### U MICRO, ERUR #### [facility] [address] [place] [address] Dr. Adria Campbell SPEC GRAVITY >=1.030 Abnormal 1.005-<=1.025 [facility] Comment on above: Performed By: #### U MICRO, ERUR #### [facility] [address] [address] [address] Adria Campbell UR MICRO IND INDICATED Normal [facility] Comment on above: Performed By: #### U MICRO, ERUR #### [facility] [address] [place] [address] Dr. Adria Campbell Urobilinogen Qn (U) 0.2 {Fifi'U}/dL Normal 0.2 - 1. 0 [facility] Comment on above: Performed By: #### U MICRO, ERUR #### [facility] [address] [address] [address] Adria Campbell PROF CHEM 8 (BAS METB)on Anion gap [Moles/Vol] 13.2 mmol/L Normal [facility] Comment on above: Performed By: #### B MP #### [facility] [address] [place] [address] Dr. Adria Campbell Calcium [Mass/Vol] 8.9 mg/dL Normal 8.5-10.1 [facility] Comment on above: Performed By: #### B MP #### [facility] [address] [place] [address] Dr. Adria Campbell Chloride [Moles/Vol] 101 mmol/L Normal 98-107 [facility] Comment on above: Performed By: #### B MP #### [facility] [address] [place] [address] Dr. Adria Campbell CO2 [Moles/Vol] 28.3 mmol/L Normal 21.0-32.0 [facility] Comment on above: Performed By: #### B MP #### [facility] [address] [place] [address] Dr. Adria Campbell Creatinine [Mass/Vol] 0.90 mg/dL Normal 0.70-1.30 [facility] Comment on above: Performed By: #### B MP #### [facility] [address] [place] [address] Dr. Adria Campbell EGFR-AF BOTSWANAN >60 Normal >=60 [facility] Comment on above: Performed By: #### B MP #### [facility] [address] [place] [address] Dr. Adria Campbell EGFR-NON AF BOTSWANAN >60 Normal >=60 [facility] Comment on above: Performed By: #### B MP #### [facility] [address] [place] [address] Dr. Adria Campbell Glucose [Mass/Vol] 120 mg/dL Critically high 74-106 T [facility] Comment on above: Performed By: #### B MP #### [facility] [address] [address] [address] Adria Campbell Potassium [Moles/Vol] 3.5 mmol/L Normal 3.5-5.1 [facility] Comment on above: Performed By: #### B MP #### [facility] [address] [place] [address] Dr. Adria Campbell Sodium [Moles/Vol] 139 mmol/L Normal 136-145 [facility] Comment on above: Performed By: #### B MP #### [facility] [address] [address] [address] Adria Campbell Urea nitrogen [Mass/Vol] 10.0 mg/dL Normal 7.0-18.0 [facility] Comment on above: Performed By: #### B MP #### [facility] [address] [place] [address] Dr. Adria Campbell Urea nitrogen/Creatinine [Mass ratio] 11.1 mg/mg Normal [facility] Comment on above: Performed By: #### B MP #### [facility] [address] [place] [address] Dr. Adria Cmapbell URINE MICROSCOPIC ONLYon BACTERIA MODERATE Abnormal NONE SEEN [facility] Comment on above: Performed By: #### U MICRO, ERUR #### [facility] [address] [place] [address] Dr. Adria Campbell Bacteria identified Cx Nom (U) INDICATED Normal [facility] Comment on above: Performed By: #### U MICRO, ERUR #### [facility] [address] [place] [address] Dr. Adria Campbell CAST SEEN Abnormal NONE SEEN [facility] Comment on above: Performed By: #### U MICRO, ERUR #### [facility] [address] [place] [address] Dr. Adria Campbell Crystals LM Nom (Urine sed) NONE SEEN Normal NONE SEEN [facility] Comment on above: Performed By: #### U MICRO, ERUR #### [facility] [address] [place] [address] Dr. Adria Campbell Epithelial cells LM Ql (Urine sed) FEW Abnormal NONE SEEN /RARE [facility] Comment on above: Performed By: #### U MICRO, ERUR #### [facility] [address] [address] [address] Adria Campbell HYALINE CAST RARE Normal [facility] Comment on above: Performed By: #### U MICRO, ERUR #### [facility] [address] [address] [address] Adria Campbell MUCOUS TRACE Abnormal NONE SEEN [facility] Comment on above: Performed By: #### U MICRO, ERUR #### [facility] [address] [address] [address] Adria Campbell RBC 20-50 Abnormal 0-2 [facility] Comment on above: Performed By: #### U MICRO, ERUR #### [facility] [address] [address] [address] Adria Campbell WBC 20-50 Abnormal NONE SEEN [facility] Comment on above: Performed By: #### U MICRO, ERUR #### [facility] [address] [address] [address] Adria Campbell US SCROTUM W VASCULAR ORGANo n 11-06-2022 US SCROTUM W VASCULAR ORGAN EXAMINATION: US SCROTUM W VASCULAR ORGAN HISTORY: Pain ; right testicular pain and swelling without appreciable improvement on antibiotics COMPARISON: Ultrasound scrotum 11/03/2022 TECHNIQUE: High-resolution sonographic imaging of the scrotum and contents was performed. FINDINGS: RIGHT: TESTICLE: Hypervascular testicle with normal waveform, flow velocity, resistive index (0.4). Large, septated hydrocele. EPIDIDYMIS: Slightly hypervascular epididymis with complex 2.3 cm cyst within head. OTHER: None. LEFT: TESTICLE: Normal size, contour, and echotexture. Duplex Doppler demonstrates normal waveform, flow rate, and resistive index. EPIDIDYMIS: Normal size and echogenicity. OTHER: Small left varicocele. IMPRESSION: 1. Persistent right orchitis and epididymitis, with stable large markedly septated hydrocele and cyst within right epididymal head. No significant change. Electronically authenticated by: JANA PARR Date: 2022-11-06 11:09 Normal [facility] CULTURE URINEon 11-03-2022 CULTURE URINE Culture Observations: NO GROWTH. Normal [facility] Comment on above: Performed By: #### B MP #### [facility] [address] [place] [address] Dr. Adria Campbell ER URINE PROFILEon 3 Bilirubin Ql (U) Negative Normal NEGATIVE [facility] Comment on above: Performed By: #### E RUR, UMICRO #### [facility] [address] [place] [address] Dr. Adria Campbell Clarity (U) CLEAR Normal CLEAR [facility] Comment on above: Performed By: #### E RUR UMICRO #### [facility] [address] [place] [address] Dr. Adria Campbell Color (U) YELLOW Normal YELLOW [facility] Comment on above: Performed By: #### Anup YAO UMICRO #### [facility] [address] [place] [address] Dr. Adria Campbell ERUAHKuldip A micrscopic examination will be performed if indicated. Normal [facility] Comment on above: Performed By: #### E RUR UMICRO #### [facility] [address] [place] [address] Dr. Adria Campbell Glucose Ql (U) Negative Normal NEGATIVE [facility] Comment on above: Performed By: #### Anup RUR, UMICRO #### [facility] [address] [place] [address] Dr. Adria Campbell Hemoglobin Ql (U) SMALL Abnormal NEGATIVE [facility] Comment on above: Performed By: #### E RUR, UMICRO #### [facility] [address] [place] [address] Dr. Adria Campbell Ketones Ql (U) Negative Normal NEGATIVE [facility] Comment on above: Performed By: #### E RUR, UMICRO #### [facility] [address] [place] [address] Dr. Adria Campbell LEUKOCYTES SMALL Abnormal NEGATIVE [facility] Comment on above: Performed By: #### E RUR, UMICRO #### [facility] [address] [place] [address] Dr. Adria Campbell Nitrite Ql (U) Negative Normal NEGATIVE [facility] Comment on above: Performed By: #### SOL KHANRO #### [facility] [address] [place] [address] Dr. Adria Campbell pH (U) 6.0 [pH] Normal 5-9 [facility] Comment on above: Performed By: #### AUNG KHAN #### [facility] [address] [place] [address] Dr. Adria Campbell SPEC GRAVITY 1.020 Normal 1.005-<=1.025 [facility] Comment on above: Performed By: #### SOL KHANRO #### [facility] [address] [place] [address] Dr. Adria Campbell UA PROTEIN Negative Normal NEGATIVE/ TRACE [facility] Comment on above: Performed By: #### AUNG KHAN #### [facility] [address] [place] [address] Dr. Adria Campbell UR MICRO IND INDICATED Normal [facility] Comment on above: Performed By: #### AUNG KHAN #### [facility] [address] [place] [address] Dr. Adria Campbell Urobilinogen Qn (U) 0.2 {Fifi'U}/dL Normal 0.2 - 1. 0 [facility] Comment on above: Performed By: #### SOL KHANRO #### [facility] [address] [place] [address] Dr. Adria Campbell URINE MICROSCOPIC ONLYon BACTERIA NONE SEEN Normal NONE SEEN [facility] Comment on above: Performed By: #### AUNG KHAN #### [facility] [address] [place] [address] Dr. Adria Campbell Bacteria identified Cx Nom (U) NOT INDICATED Normal [facility] Comment on above: Performed By: #### AUNG KHAN #### [facility] [address] [place] [address] Dr. Adria Campbell CAST NONE SEEN Normal NONE SEEN [facility] Comment on above: Performed By: #### Anup YAO UMICRO #### [facility] [address] [place] [address] Dr. Adria Campbell Crystals LM Nom (Urine sed) NONE SEEN Normal NONE SEEN [facility] Comment on above: Performed By: #### Anup YAO UMICRO #### [facility] [address] [place] [address] Dr. Adria Campbell Epithelial cells LM Ql (Urine sed) NONE SEEN Normal NONE SEEN /RARE [facility] Comment on above: Performed By: #### Anup YAO UMICRO #### [facility] [address] [place] [address] Dr. Adria Campbell MUCOUS NONE SEEN Normal NONE SEEN [facility] Comment on above: Performed By: #### Anup YAO UMICRO #### [facility] [address] [place] [address] Dr. Adria Campbell RBC 0-2 Normal 0-2 [facility] Comment on above: Performed By: #### Anup YAO UMICRO #### [facility] [address] [place] [address] Dr. Adria Campbell WBC 0-2 Abnormal NONE SEEN [facility] Comment on above: Performed By: #### Anup YAO UMICRO #### [facility] [address] [place] [address] Dr. Adria Campbell US SCROTUM W VASCULAR ORGANo n 11-03-2022 US SCROTUM W VASCULAR ORGAN EXAMINATION: US TESTICULAR AND SCROTAL, 11/03/2022 4:20 PM EST COMPARISON: None. HISTORY: Right testicular pain and swelling TECHNIQUE: The scrotum was scanned in standard fashion with specialized ultrasound transducer(s) using both davis scale and limited color Doppler techniques. Findings: The right testicle demonstrates markedly increased diffuse vascularity. Relatively normal-appearing color Doppler flow in the left testicle. The right testicle measures 4.0 x 2.8 x 2.4 cm and the left measures 4.3 x 3.2 x 3.2 cm. There is no evidence of torsion. There is a large right scrotal hydrocele with internal septations measuring up to 6 cm in length. A complex cystic structure is seen in the right epididymal head measuring 3.1 cm with surrounding increased color Doppler flow. Impression: 1. Markedly increased right testicular vascularity, as well as a complex fluid collection in the right epididymis suggesting sequelae of epididymoorchitis. There is a large right scrotal hydrocele containing septation, also likely related to infection. Electronically authenticated by: XIOMARA PATEL Date: 2022-11-03 18:07 Normal [facility] Encounters Encounter Date Encounter Type Care Provider Facility Start: 11-23-2023 End: 11-23-2023 Emergency department patient visit [facility] Start: 02-27-2023 ambulatory Cristina Martin Facility:[facility] Start: 01-05-2023 End: 01-05-2023 ambulatory NONE LISTED REQUEST Facility: Start: 12-23-2022 End: 12-23-2022 ambulatory NONE LISTED REQUEST Facility: Start: 11-06-2022 End: 11-06-[address] NONE LISTED REQUEST Facility: Start: 11-05-2022 ambulatory Cristina Martin Facility:[facility] Start: 11-03-2022 End: 11-03-[address] NONE LISTED REQUEST Facility: Payers Date Payer Category Payer Unknown [id number] 2.16.84 [id number] 1985 Unknown [id number] 2.16.84 [id number] 1986 Unknown [id number] 2.16.84 [id number] 1986 Unknown [id number] 2.16.84 [id number] 1986 Unknown [id number] 2.16.8 [id number] 1959 Unknown [id number] Summary Purpose Family History No Family History Records FoundNo Family History Records FoundNo Family History Records Found Advance Directives No Advanced Directives Records FoundNo Advanced Directives Records FoundNo Advanced Directives Records Found Additional Source Comments (unrecognized sect ion and content) No Status Records FoundNo Status Records FoundNo Status Records Found INFORMATION SOURCE (unrecogn ized section and content) DATE CREATED AUTHOR 12/26/2022 Ruslan Law [facility] DATE CREATED AUTHOR AUTHOR'S ORGANIZ ATION 01/07/2023 [facility] DATE CREATED AUTHOR AUTHOR'S ORGANIZ ATION 11/23/2023 [facility] FOR RECORDS PERTAINING TO PATIENTS WHO ARE OR HAVE BEEN ENROLLED IN A CHEMICAL DEPENDENCY/SUBSTANCEABUSE PROGRAM, SOME INFORMATION MAY BE OMITTED. This clinical summary was aggregated from multiple sources. Caution should be exercised in using it in the provision of clinical care. This summary normalizes information from multiple sources, and as a consequence, information in this document may materially change the coding, format and clinical context of patient data. In addition, data may be omitted in some cases. CLINICAL DECISIONS SHOULD BE BASED ON THE PRIMARY CLINICAL RECORDS. [facility] [employer] provides no warranty or guarantee of the accuracy or completeness of information in this document.
--- NOTE | 2025-02-04 15:19 | ED.DENTAL1 ---
HPI - Dental/Oral General Chief complaint: Dental/Oral Stated complaint: TOOTHACHE Time Seen by Provider: 02/04/25 15:08 Source: patient Mode of arrival: walk-in History of Present Illness HPI Narrative: Patient is a 39-year-old male presents to the ER with concerns of increasing dental pain. Patient admits to history of poor dentition recently got insurance coverage for dental care. Has not seen a dentist in years. Patient has had dental infections in the past and has noticed increased pain and swelling in his left lower and left upper rear molars. Obvious dental decay, noting some swelling on his gum concerning for early infection presenting for antibiotic before he can get into see a dentist. Patient has a penicillin allergy. He denies difficulty swallowing there is been no fever. He talks with a clear voice. He has no additional concerns other than pain and concern of infection. Patient notes he has received topical dental analgesia before with good relief. Patient appears nontoxic in no acute distress MD Complaint: Reports tooth pain Onset (ago): day(s) (2) Duration: constant Severity: moderate Relieving factors: NSAIDs Exacerbating factors: chewing and cold Context: history of dental caries and poor dental care Associated symptoms: gum swelling Related Data Previous Rx's ?Medication ?Instructions ?Recorded clindamycin HCl 300 mg capsule 300 mg PO Q6H 10 days #40 caps 02/04/25 clindamycin HCl 300 mg capsule 300 mg PO Q6H 10 days #40 caps 02/04/25 ibuprofen 600 mg tablet 600 mg PO TID PRN pain #30 tabs 02/04/25 ibuprofen 600 mg tablet 600 mg PO TID PRN pain #30 tabs 02/04/25 Allergies Allergy/AdvReac Type Severity Reaction Status Date / Time Penicillins Allergy Severe Anaphylaxis Verified 07/17/23 12:59 Review of Systems ROS Constitutional Denies: fever or chills Eyes Denies: change in vision Ears, nose, mouth, and throat Reports: mouth pain; Denies: throat pain, neck pain or change in hearing Cardiovascular Denies: chest pain Respiratory Denies: shortness of breath, cough or wheezing Gastrointestinal Denies: abdominal pain or nausea Musculoskeletal Denies: back pain, neck pain, extremity pain or extremity swelling Integumentary/Breast Denies: rash, itching or redness Neurological Denies: headache or numbness in extremities Psychiatric Denies: anxiety Hematologic/Lymphatic Denies: easy bruising PFSH [facility] Social History Smoking status: Current every day smoker Little interest or pleasure in doing things: not at all Feeling down, depressed, or hopeless: not at all Exam Narrative Exam Narrative: Nurses notes reviewed and patient is noted to be non-hypoxic. General: The patient is comfortable, alert and oriented x3, well appearing, non toxic in no apparent distress. Head: Atraumatic and normocephalic. Eyes: Normal conjunctiva, no exudates. ENT: The oropharynx is normal. No pharyngeal erythema, uvular edema, tonsillar exudates, asymmetry or trismus. Uvula is midline. Multiple dental caries multiple teeth that appear chipped or chronically fractured, tenderness and minimal gum swelling at the left lower rear molar and left upper rear molar. No fluctuant abscess for incision and drainage. No active visible drainage through the decayed tooth. There is no evidence of facial asymmetry or abscess formation in the floor of the mouth. , Floor of the mouth is soft. No tenderness in the submental or submandibular space. No tongue elevation or deviation. Gum tissue is pink and nonbleeding. No ulcerations. Airway is patent. Neck: The neck demonstrates normal range of motion. No meningeals signs are present. No stridor. No masses or lymphadenopathy noted. Respiratory: No acute distress, lungs are clear to auscultation, no wheezing, rhonchi, or rales noted. No stridor or retractions are noted. Cardiovascular: Regular rate and rhythm Skin: The skin exam shows no evidence of rashes Neuro: Alert and oriented x4, normal speech Lymphatic: No cervical lymphadenopathy Constitutional Vital Signs, click to edit/add: Last Vital Signs Temp 98.2 F 02/04/25 14:41 Pulse 75 02/04/25 14:41 Resp 18 02/04/25 14:41 BP 145/88 H 02/04/25 14:41 Pulse Ox 100 02/04/25 14:41 O2 Del Method Room Air 02/04/25 14:41 Course Vital Signs Vital signs: Vital Signs Temperature 98.2 F 02/04/25 14:41 Pulse Rate 75 02/04/25 14:41 Respiratory Rate 18 02/04/25 14:41 Blood Pressure 145/88 H 02/04/25 14:41 Pulse Oximetry 100 02/04/25 14:41 Oxygen Delivery Method Room Air 02/04/25 14:41 Temperature 98.2 F 02/04/25 14:41 Pulse Rate 75 02/04/25 14:41 Respiratory Rate 18 02/04/25 14:41 Blood Pressure 145/88 H 02/04/25 14:41 Pulse Oximetry 100 02/04/25 14:41 Oxygen Delivery Method Room Air 02/04/25 14:41 MDM - Dental/Oral MDM Narrative Medical decision making narrative: Discussed patient's presentation multiple teeth with poor dentition. Some of his molars appear cracked chronically fractured secondary to dental caries. He denies any recent injury. He reports having dental insurance now and is encouraged to contact the number on his card for a local provider. Given some gingival swelling without fluctuant abscess he will be placed on clindamycin given his penicillin allergy. Risks and benefits discussed he is to take it with food to minimize side effects. He is given a prescription of Motrin to help with pain and topical dental analgesia to use until he is able to be seen by dentist for definitive care. Patient verbalized understanding had no further concerns or questions and will return to the ER if symptoms worsen or new symptoms develop. Patient is encouraged to contact the dental clinics on Thursday to discuss prompt follow-up. Discharge Plan Discharge Chief Complaint: Dental/Oral Clinical Impression: Dental caries, Toothache, Dental abscess Patient Disposition: Home, Self-Care Time of Disposition Decision: 15:20 Condition: Good Prescriptions / Home Meds: New ibuprofen 600 mg tablet 600 mg PO TID PRN (Reason: pain) Qty: 30 0RF clindamycin HCl 300 mg capsule 300 mg PO Q6H 10 Days Qty: 40 0RF clindamycin HCl 300 mg capsule 300 mg PO Q6H 10 Days Qty: 40 0RF ibuprofen 600 mg tablet 600 mg PO TID PRN (Reason: pain) Qty: 30 0RF Print Language: Prydeinig Instructions: Dental Abscess (ED), Toothache (ED) Additional Instructions: Contactt Dental clinic on referral for follow up. Call thursday. Referrals: Dana Berry, [employer] EQUIPMENT OPERATOR [Physician] - As soon as possible
[2025-02-04] MEDS: IBUPROFEN 600 MG TABLET PO (15:37)
[2025-02-04] MEDS: CLINDAMYCIN HCL 150 MG CAPSULE 300 MG PO (15:37)
[2025-02-04] MEDS: BENZOCAINE 30 ML, lidocaine HCL 15 ML MM (15:37)
[2025-02-04 15:39] VITALS: BP 134/89; PULSE 74; O2SAT 99
== END 2025-02-04 15:39 | disposition home or self-care (01) ==
PROVIDERS: Emergency Provider Emergency Medicine
DX: K04.7 Periapical abscess without sinus (principal); K02.9 Dental caries, unspecified; K08.89 Other specified disorders of teeth and supporting structures; Z88.0 Allergy status to penicillin
CPT/HCPCS: 99283

== ENCOUNTER 2025-02-22 19:05 | Emergency (ER) | payer OTHER, SELFPAY ==
[2025-02-22 19:31] VITALS: BP 158/92; PULSE 74; TEMP 37; O2SAT 99; BMI 27.1
--- NOTE | 2025-02-22 20:01 | ED_ITS ---
HPI HPI - General Adult General Stated complaint: oral Time Seen by Provider: 02/22/25 19:33 Source: patient Source information: Have a dental appointment in 2 weeks Mode of arrival: walk-in History of Present Illness HPI narrative: The patient is a 39-year-old male who presents to the emergency department today for evaluation concerns for dental pain. He endorses for the past few weeks he has had pain to a fractured tooth to the top of the left maxillary region and one of his molars. He mentions he was seen in the ER approximately 1 week ago and given antibiotics and a topical which she reports did help some. He is requesting additional doses of the topical anesthetic for his dental pain. He additionally reports he is a smoker. No fevers. He denies any ear pain or sore throat. He states he has an appointment with a dentist in 2 weeks for evaluation of this pain. Related Data Previous Rx's ?Medication ?Instructions ?Recorded ibuprofen 600 mg tablet 600 mg PO TID PRN pain #30 t abs 02/04/25 ibuprofen 600 mg tablet 600 mg PO TID PRN pain #30 t abs 02/04/25 Allergies Allergy/AdvReac Type Severity Reaction Status Date / Time Penicillins Allergy Severe Anaphylaxis Verified 02/22/25 19:37 Opioid HPI Opioid Management Most Recent Opioid Data: Last Pain Scale 10 02/22/25, 19:31 Review of Systems ROS Status of ROS 10 or more systems reviewed and unremark able except as noted in history and [facility] History Smoking status: Current every day smoker Little interest or pleasure in doing things: not at all Feeling down, depressed, or hopeless: not at all Exam Narrative Exam Narrative: Constituational: Awake/ alert, no apparent distress, well hydrated HENMT: normocephalic, normal/external ears normal, + overall poor dentition with dental pain to tooth #14 with fracture and dental carry present. Moist oral mucous membranes and oropharynx normal Eyes: EOMI and conjunctivae normal Neck: ROM intact Chest: inspection of chest normal Respiratory: Normal respiratory effort MSK: ROM intact, +NVI Skin: no rashes or petechiae Neuro: no focal deficits Psych: mental status grossly normal Constitutional Vital Signs, click to edit/add: Last Vital Signs Temp 98.6 F 02/22/25 19:31 Pulse 74 02/22/25 19:31 Resp 16 02/22/25 19:31 BP 158/92 H 02/22/25 19:31 Pulse Ox 99 02/22/25 19:31 O2 Del Method Room Air 02/22/25 19:31 Course Vital Signs Vital signs: Vital Signs Temperature 98.6 F 02/22/25 19:31 Pulse Rate 74 02/22/25 19:31 Respiratory Rate 16 02/22/25 19:31 Blood Pressure 158/92 H 02/22/25 19:31 Pulse Oximetry 99 02/22/25 19:31 Oxygen Delivery Method Room Air 02/22/25 19:31 Temperature 98.6 F 02/22/25 19:31 Pulse Rate 74 02/22/25 19:31 Respiratory Rate 16 02/22/25 19:31 Blood Pressure 158/92 H 02/22/25 19:31 Pulse Oximetry 99 02/22/25 19:31 Oxygen Delivery Method Room Air 02/22/25 19:31 Medical Decision Making MDM Narrative Medical decision making narrative: The patient is a well-appearing 39-year-old male who presented to the emergency department today for evaluation concerns for acute on chronic dental pain. Initial examination vital signs overall stable with exception patient is noted to have overall very poor vision. Patient noted to have pain to a fractured tooth in the left region. No evidence of dental abscess or infection present. Patient given dental analgesia topically in the emergency department with doses to go home with. Historically patient does have an appointment with his dentist in the next 2 weeks. Patient additionally counseled for 5 minutes on smoking cessation. Discussed signs and symptoms of any worsening condition and when to consider reevaluation by the emergency department. Patient verbalized an understanding of this and is agreeable with the plan to be discharged home. Medical Records Medical records reviewed: Yes I reviewed the patient's medical records Discharge Plan Discharge Clinical Impression: Toothache, Fracture of tooth, Dental caries Patient Disposition: Home, Self-Care Prescriptions / Home Meds: No Action ibuprofen 600 mg tablet 600 mg PO TID PRN (Reason: pain) Qty: 30 0RF ibuprofen 600 mg tablet 600 mg PO TID PRN (Reason: pain) Qty: 30 0RF Print Language: Divehi Instructions: Toothache (ED) Additional Instructions: May apply topical anesthetic to the affected tooth 3-4 times a day as needed for pain. May take Tylenol or ibuprofen as needed for any pain. Please stop smoking as this is going to worsen your dental pain. Follow-up with your dentist for reevaluation as discussed. Referrals: Physician,Non-Staff, MD [Primary Care Provider] - 1 week Discharge Date/Time: 02/22/25 20:24
[2025-02-22] MEDS: BENZOCAINE 30 ML, lidocaine HCL 15 ML MM (20:13)
== END 2025-02-22 20:24 | disposition home or self-care (01) ==
PROVIDERS: Emergency Provider Emergency Medicine
DX: K08.89 Other specified disorders of teeth and supporting structures (principal); K02.9 Dental caries, unspecified; S02.5XXA Fracture of tooth (traumatic), initial encounter for closed fracture; F17.200 Nicotine dependence, unspecified, uncomplicated
CPT/HCPCS: 99282